=== PATIENT | male | born 1950 | race African-American/Black ===

== ENCOUNTER 2017-03-08 15:06 | Emergency (ER) | payer OTHER ==
[~2017-03-08] VITALS: Ht 182.9 cm; Wt 66.7 kg
[~2017-03-08 15:06] MED LIST: AMOX TR-K CLV1 EAC1 PO; AMOXICILLIN500 M1 PO; CARISOPRODOL 3350 MG; CARISOPRODOL 3350 MG PO; DIOVAN HCT 1601 EAC1 PO; HYDROCHLOROTHIA25 M2; HYDROCODONE-AP1 EAC6 PO; LIDODERM 5%1 PATC1 TRANSDERM; LOPRESSOR50 PO; LORTAB 7.5/5001 TA1 PO; LOSARTAN-HCTZ1 EAC3 PO; MEDROLDOSEPACK PO; METOPROLOL SUCC50 MG PO; NORCO 10-325 T1 EACH PO; NORCO 5-325 TA1 EAC1 PO; NORCO 5-325 TA1 EACH PO; OXYBUTYNIN 5 MG5 M2 PO; OXYCODONE HCL 55 MG PO; OXYCODONE HCL10 MG PO; OXYCODONE HCL30 MG PO; OXYCONTIN20 M1 PO; PERCOCET 5-3251 EACH PO; PERCOCET 7.5-31 EACH PO; PREDNISONE 20 M20 M1 PO; PREDNISONE 20 M20 MG PO; PROTONIX40 M1 PO; SENOKOT-S1 TA1 PO; ULTRAM 50MG TAB50 MG PO; ZOFRAN ODT4 MG PO
[2017-03-08 15:07] VITALS: BP 149/113
[2017-03-08] MEDS ORDERED: VALSARTAN-HCTZ1 EAC2 PO (15:16)
[2017-03-08] MEDS ORDERED: HYDROCODONE-AP1 EAC6 PO (15:30)
[2017-03-08] MEDS ORDERED: PREDNISONE 10 M10 MG PO (15:30)
[2017-03-08] MEDS ORDERED: ROBAXIN 750 MG750 M1 PO (15:30)
== END 2017-03-08 16:11 | disposition home or self-care (01) ==
LOC: ER 15:06
DX: M54.5 Low back pain (principal); G89.29 Other chronic pain; I10 Essential (primary) hypertension; Z98.890 Other specified postprocedural states; Z88.6 Allergy status to analgesic agent; Z88.5 Allergy status to narcotic agent; Z88.8 Allergy status to other drugs, medicaments and biological substances; F17.210 Nicotine dependence, cigarettes, uncomplicated

== ENCOUNTER 2017-04-29 19:14 | Emergency (ER) | payer OTHER ==
[~2017-04-29] VITALS: Ht 182.9 cm; Wt 65.8 kg
[~2017-04-29 19:14] MED LIST changes: +PREDNISONE 10 M10 MG PO; +ROBAXIN 750 MG750 M1 PO; +SKELAXIN 800 M800 M1 PO; +VALSARTAN-HCTZ1 EAC2 PO
[2017-04-29] MEDS ORDERED: CARISOPRODOL 3350 MG PO (19:50)
[2017-04-29] MEDS ORDERED: NORCO 5-325 TA1 EACH PO (19:50)
[2017-04-29 20:02] VITALS: BP 169/73
== END 2017-04-29 20:04 | disposition home or self-care (01) ==
LOC: ER 19:14
DX: G89.29 Other chronic pain (principal); M54.5 Low back pain; I10 Essential (primary) hypertension; F17.210 Nicotine dependence, cigarettes, uncomplicated; Z98.890 Other specified postprocedural states

== ENCOUNTER 2017-10-02 22:24 | Emergency (ER) | payer OTHER ==
[~2017-10-02] VITALS: Ht 182.9 cm; Wt 65.8 kg
[~2017-10-02 22:24] MED LIST changes: +PROMETH-CODEIN 65 ML PO
[2017-10-03] MEDS ORDERED: ROBAXIN500 MG PO (00:11)
[2017-10-03] MEDS ORDERED: PERCOCET PO (00:11)
[2018-03-16] MEDS ORDERED: CEFDINIR300 MG PO (01:32)
[2018-03-16] MEDS ORDERED: SINGULAIR 10 MG10 M1 PO (01:33)
[2018-03-16] MEDS ORDERED: DIOVAN HCT 1601 EAC1 PO (01:34)
[2018-03-16] MEDS ORDERED: VITAMIN D-32000 UNIT PO (01:34)
[2018-03-16] MEDS ORDERED: ROXICODONE30 M1 PO (01:35)
[2018-03-16] MEDS ORDERED: CARISOPRODOL 3350 MG PO (01:35)
[2018-03-16] MEDS ORDERED: COMPAZINE10 MG PO (02:52)
== END 2017-10-03 00:23 | disposition home or self-care (01) ==
LOC: ER 22:24
DX: G89.29 Other chronic pain (principal); M54.5 Low back pain; I10 Essential (primary) hypertension; F17.210 Nicotine dependence, cigarettes, uncomplicated; Z88.5 Allergy status to narcotic agent; Z88.6 Allergy status to analgesic agent; Z88.8 Allergy status to other drugs, medicaments and biological substances

== ENCOUNTER 2018-09-07 03:18 | Emergency (ER) | payer OTHER ==
[~2018-09-07] VITALS: Ht 182.9 cm; Wt 62.6 kg
[~2018-09-07 03:18] MED LIST changes: +CEFDINIR300 MG PO; +COMPAZINE10 MG PO; +PERCOCET PO; +ROBAXIN500 MG PO; +ROXICODONE30 M1 PO; +SINGULAIR 10 MG10 M1 PO; +VITAMIN D-32000 UNIT PO
[2018-09-07 03:27] VITALS: BP 164/99
[2018-09-07] MEDS ORDERED: DIOVAN HCT 1601 EAC1 PO (03:48)
[2018-09-07] MEDS ORDERED: ROXICODONE30 M1 PO (03:48)
== END 2018-09-07 04:20 | disposition home or self-care (01) ==
LOC: ER 03:18
DX: Z76.0 Encounter for issue of repeat prescription (principal); I10 Essential (primary) hypertension; F17.210 Nicotine dependence, cigarettes, uncomplicated; Z88.8 Allergy status to other drugs, medicaments and biological substances; Z88.5 Allergy status to narcotic agent